=== PATIENT | female | born 2000 | race Caucasian/White ===

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

== ENCOUNTER 2021-06-08 10:27 | Inpatient (IN) | payer OTHER ==
[2021-06-08 12:22] LABS: HEMATOCRIT 46.3 % (32.4-45.2); HEMOGLOBIN 14.9 GM/dL (10.7-15.3); MCH 24.4 pg (25.7-33.7); MCHC 32.2 g/dl (32.0-36.0); MEAN CELL VOLUME 75.7 fl (80-96); MEAN PLT VOLUME 8.5 fl (7.5-11.1); PLATELET COUNT 194 10^3/uL (134-434); RBC 6.12 M/mm3 (3.60-5.2); RDW 17.9 % (11.6-15.6); WHITE BLOOD COUNT 4.5 K/mm3 (4.0-10.0)
[2021-06-08 13:24] LABS: ALBUMIN 3.5 g/dl (3.4-5.0); ALK PHOS 95 U/L (45-117); ANION GAP 6 MMOL/L (8-16); BILIRUBIN,TOTAL 0.7 mg/dL (0.2-1); BLOOD UREA NITROGEN 11.2 mg/dL (7-18); CHLORIDE 108 mmol/L (98-107); CO2 26 mmol/L (21-32); CREATININE 0.8 mg/dL (0.55-1.3); GLUCOSE,RANDOM 100 mg/dL (74-106); SGOT/AST 25 U/L (15-37); SGPT/ALT 23 U/L (13-61); SODIUM 140 mmol/L (136-145); TOT PROT 8.2 g/dl (6.4-8.2)
[2021-06-08] MEDS ORDERED: CEFTRIAXONE 1,000 MG in DEXTROSE 5%-WATER - 50 ML IVPB ONE (15:23)
[2021-06-08] MEDS ORDERED: AZITHROMYCIN IVPB 500 MG in DEXTROSE 5%-WATER - 250 ML IVPB ONE (15:23)
[2021-06-08] MEDS ORDERED: SODIUM CHLORIDE 0.9% 1000 ML INFUS.BAG IV ONE (15:23)
[2021-06-08] MEDS ORDERED: CEFTRIAXONE 1 GM/50 ML BAG ONE (15:37)
[2021-06-08] MEDS ORDERED: AZITHROMYCIN IVPB 500 MG/250 ML BAG IVPB ONE (15:38)
[2021-06-08 15:49] LABS: N-TERMINAL BNP 2446.9 pg/ml (5-125)
[2021-06-08] MEDS ORDERED: SODIUM CHLORIDE 1,000 ML IV SCH (17:00)
[2021-06-08] MEDS ORDERED: guaiFENesin 200 MG/10 ML 10 ML UNIT-DOSE CUPS PO ONE (20:26)
[2021-06-08] MEDS: ACETAMINOPHEN 325 MG TABLET (FP) PO PRN (20:53)
[2021-06-09 03:49] VITALS: BMI 51.7
[2021-06-09 09:20] LABS: HEMATOCRIT 43.9 % (32.4-45.2); HEMOGLOBIN 13.7 GM/dL (10.7-15.3); MCH 23.5 pg (25.7-33.7); MCHC 31.2 g/dl (32.0-36.0); MEAN CELL VOLUME 75.1 fl (80-96); MEAN PLT VOLUME 8.5 fl (7.5-11.1); PLATELET COUNT 200 10^3/uL (134-434); RBC 5.85 M/mm3 (3.60-5.2); RDW 18.4 % (11.6-15.6); WHITE BLOOD COUNT 3.4 K/mm3 (4.0-10.0)
[2021-06-09] MEDS ORDERED: AZITHROMYCIN IVPB 500 MG/250 ML BAG IVPB SCH ×2 (10:00→13:30)
[2021-06-09] MEDS ORDERED: FLU VACC QS2021-22(6MOS UP)/PF 60 MCG/0.5 ML SYRINGE IM ONE (10:00)
[2021-06-09] MEDS ORDERED: CEFTRIAXONE 1 GM in DEXTROSE 5%-WATER - 50 ML IVPB SCH ×2 (10:00→13:30)
[2021-06-09] MEDS: ENOXAPARIN NA (PORCINE) 40 MG/0.4 ML DISP.SYRIN SQ SCH (11:26)
[2021-06-09 12:16] LABS: ANION GAP 8 MMOL/L (8-16); BLOOD UREA NITROGEN 7.7 mg/dL (7-18); CALCIUM 8.9 mg/dL (8.5-10.1); CHLORIDE 107 mmol/L (98-107); CO2 23 mmol/L (21-32); CREATININE 0.8 mg/dL (0.55-1.3); GLUCOSE,RANDOM 143 mg/dL (74-106); PHOSPHOROUS 4.1 mg/dL (2.5-4.9); SODIUM 138 mmol/L (136-145)
[2021-06-09] MEDS ORDERED: DEXTROSE 5%-WATER - 50 ML IVPB ONE (14:04)
[2021-06-09] MEDS ORDERED: cefTRIAXone SODIUM 1 GM VIAL ONE (14:04)
[2021-06-09] MEDS: ACETAMINOPHEN 325 MG TABLET (FP) PO PRN (20:24)
[2021-06-10 00:12] LABS: EPI CELLS 16 /uL (0-25.1); HYALINE CASTS 1 /uL (0-3.1); URINE APPEARANCE CLEAR; URINE BACTERIA 30 /uL (0-1359); URINE BILIRUBIN NEGATIVE (NEGATIVE); URINE COLOR YELLOW; URINE GLUCOSE (UA) NEGATIVE (NEGATIVE); URINE KETONE NEGATIVE (NEGATIVE); URINE LEUK ESTERASE TRACE (NEGATIVE); URINE NITRITE NEGATIVE (NEGATIVE); URINE PROTEIN 1+ (NEGATIVE); URINE RBC 10 /uL (0-23.9); URINE UROBILINOGEN 0.2 mg/dL (0.2-1.0); URINE WBC 36 /uL (0-25.8)
[2021-06-10 07:04] VITALS: BP 139/91; PULSE 100; TEMP 97.4
[2021-06-10] MEDS: ENOXAPARIN NA (PORCINE) 40 MG/0.4 ML DISP.SYRIN SQ SCH (10:44)
== END 2021-06-10 11:11 | disposition home or self-care (01) | DRG 138 ==
LOC: JER 10:27 → JERBED 15:36 → J5S 18:54
PROVIDERS: ADMIT Internal Medicine; ATTEND Nurse Practitioner Acute Care
DX: J21.0 Acute bronchiolitis due to respiratory syncytial virus (principal); J18.9 Pneumonia, unspecified organism; Q21.3 Tetralogy of Fallot; E66.01 Morbid (severe) obesity due to excess calories; Z68.43 Body mass index [BMI] 50.0-59.9, adult; R07.81 Pleurodynia; I45.10 Unspecified right bundle-branch block; G47.33 Obstructive sleep apnea (adult) (pediatric)
CPT/HCPCS: 36415; 71046-TC-FY; 71275-TC; 80048; 80053; 81003; 82550; 82728; 83735; 83880; 84100; 84443; 84484; 84703; 85027; 85379; 86140; 87040; 87086; 87804; 87807; 93005; 93010; 93306-TC; 94010; 99285-25; C9803; Q9967; U0003; U0005

== ENCOUNTER 2021-08-18 12:23 | Emergency (ER) | payer OTHER ==
[2021-08-18 12:53] VITALS: TEMP 97.7; BMI 55.4
[2021-08-18] MEDS ORDERED: FUROSEMIDE 40 MG/4 ML INJECTABLE VIAL IVPUSH ONE (14:19)
[2021-08-18 15:13] LABS: ARTERIAL BLD GAS O2 SATURATION 89.5 % (95-98); ARTERIAL BLOOD GAS BASE EXCESS -3.5 mmol/L (-2-2); ARTERIAL BLOOD GAS PO2 54.4 mmHg (80-100); ARTERIAL BLOOD GAS pH 7.427 (7.350-7.450)
[2021-08-18] MEDS ORDERED: FUROSEMIDE 40 MG/4 ML INJECTABLE VIAL ONE (15:28)
[2021-08-18 15:34] LABS: BASO % 0.9 % (0-2.0); EOS % 0.7 % (0-4.5); HEMATOCRIT 43.3 % (32.4-45.2); HEMOGLOBIN 13.6 GM/dL (10.7-15.3); LYMPH % 46.4 % (8-40); MCH 22.8 pg (25.7-33.7); MCHC 31.3 g/dl (32.0-36.0); MEAN PLT VOLUME 8.8 fl (7.5-11.1); MONO % 14.9 % (3.8-10.2); NEUT % 37.1 % (42.8-82.8); PLATELET COUNT 193 10^3/uL (134-434); RBC 5.93 M/mm3 (3.60-5.2); RDW 19.7 % (11.6-15.6); WHITE BLOOD COUNT 3.7 K/mm3 (4.0-10.0)
[2021-08-18 15:53] LABS: ALBUMIN 3.4 g/dl (3.4-5.0); CALCIUM 9.2 mg/dL (8.5-10.1); MAGNESIUM 1.7 mg/dL (1.8-2.4)
[2021-08-18 15:56] LABS: CREATININE 0.9 mg/dL (0.55-1.3)
[2021-08-18 15:58] LABS: BILIRUBIN,TOTAL 1.8 mg/dL (0.2-1); TOT PROT 7.6 g/dl (6.4-8.2)
[2021-08-18 17:02] VITALS: BP 139/87; PULSE 86
== END 2021-08-18 16:00 | disposition home or self-care (01) ==
LOC: JER 12:23
PROC: 3E033GC Introduction of Other Therapeutic Substance into Peripheral Vein, Percutaneous Approach (ICD-10-PCS; principal; 2021-08-18)
DX: I50.9 Heart failure, unspecified (principal)
CPT/HCPCS: 36415; 36600; 71045-TC-FY; 80053; 82550; 82803; 83735; 83880; 85025; 87040; 93005; 93010; 99285-25; C9803; U0003; U0005

== ENCOUNTER 2022-03-13 01:13 | Emergency (ER) | payer OTHER ==
[2022-03-13 01:33] VITALS: BP 129/85; PULSE 102; RESP 20; TEMP 98.9; BMI 49.5
== END 2022-03-13 03:32 | disposition home or self-care (01) ==
LOC: JER 01:13
DX: O26.851 Spotting complicating pregnancy, first trimester (principal); Z3A.01 Less than 8 weeks gestation of pregnancy
CPT/HCPCS: 76817-TC; 99284-25